=== PATIENT | male | born 1995 | race Caucasian/White ===

== ENCOUNTER 2020-06-28 17:02 | Outpatient (REF) | payer OTHER, SELFPAY | END 2020-06-28 17:03 | disposition home or self-care (01) | LOC: HO.LAB 17:02 | PROVIDERS: Visit Provider Internal Medicine | DX: Z20.828 Contact with and (suspected) exposure to other viral communicable diseases (principal) | CPT/HCPCS: C9803; U0003 ==

== ENCOUNTER 2021-08-13 13:20 | Emergency (ER) | payer OTHER, SELFPAY ==
[2021-08-13 14:22] VITALS: BP 133/85; PULSE 60; RESP 18; TEMP 36.9; O2SAT 100; BMI 23.8
[2021-08-13 14:47] LABS: Basophils Absolute Auto 0.1 X10*3/uL (0.0-0.2); Basophils Percent Auto 0.9 % (0-2); Eosinophils Absolute Auto 2.1 X10*3/uL (0.0-0.4); Eosinophils Percent Auto 18.8 % (0-4); Hematocrit 50.9 % (42.0-52.0); Imm Gran Abs Auto 0.03 X10*3/uL (0.00-0.03); Imm Gran Pct Auto 0.3 % (0.0-0.4); Lymphocytes Absolute Auto 2.2 X10*3/uL (1.2-4.9); Lymphocytes Percent Auto 19.6 % (20-40); MANUAL DIFF FLAG SCAN; Mean Corpuscular HGB Conc 33.4 g/dl (31.0-36.0); Mean Corpuscular Volume 89.8 fL (80.0-98.0); Mean Platelet Volume 12.1 fL (9.4-12.4); Monocytes Absolute Auto 0.9 X10*3/uL (0.1-1.2); Monocytes Percent Auto 7.9 % (2-11); Neutrophils Absolute Auto 5.9 x10*3/uL (2.0-8.3); Neutrophils Percent Auto 52.5 % (45-73); Platelet Count 205 X10*3/uL (160-400); Red Blood Count 5.67 X10*6/uL (4.60-5.80); Red Cell Distribution Width 12.1 % (11.0-16.0); SCAN SMEAR FLAG 1; White Blood Count 11.3 X10*3/uL (4.8-10.8)
[2021-08-13 14:58] LABS: Anion Gap 12 (12-20); Blood Urea Nitrogen 12 mg/dL (9-16); Calcium 10.2 mg/dL (8.4-10.2); Carbon Dioxide 30 mmol/L (22-29); Chloride 103 mmol/L (96-108); Creatinine Clr Calc Pharmacy 106.6; Estimated Glomerular Filt Rate > 60; Glucose Random 101 mg/dL (60-115); Potassium 4.6 mmol/L (3.3-5.1); Sodium 140 mmol/L (135-145)
[2021-08-13 15:21] LABS: SLIDE REVIEW VERIFIED
== END 2021-08-13 20:30 | disposition left against medical advice (07) ==
LOC: HO.ED 20:16
PROVIDERS: Emergency Provider Emergency Medicine
DX: R10.9 Unspecified abdominal pain (principal)
CPT/HCPCS: 36415; 80048; 85025; 99282; 99283

== ENCOUNTER 2022-11-25 16:21 | Emergency (ER) | payer OTHER, SELFPAY ==
--- NOTE | ~2022-11-25 | CT_ITS ---
EXAMINATION: CT ABDOMEN AND PELVIS WITHOUT CONTRAST CLINICAL INFORMATION: Flank pain, dysuria. COMPARISON: None available. TECHNIQUE: Multidetector volumetric imaging was performed from the superior aspect of the liver through the pubic symphysis. Sagittal and coronal reformatted images were obtained on the technologist's workstation. This CT examination was performed using dose optimization techniques as appropriate, variously including the following: *Automated exposure control *Adjustment of mA and/or kV according to patient size (this includes techniques or standardized protocols for targeted exams where dose is matched to indication/reason for exam; i.e. extremities or head) *Use of iterative reconstruction technique DLP: 354 mGy-cm FINDINGS: The lack of intravenous contrast limits evaluation of the solid visceral organs including the liver, spleen, pancreas, and kidneys. LUNG BASES: The visualized lung bases are unremarkable. LIVER, GALLBLADDER, AND BILIARY TREE: The liver is normal in size, shape, and attenuation. No focal hepatic lesion or biliary ductal dilatation is present. The gallbladder is unremarkable with no evidence of radiopaque gallstones, gallbladder wall thickening, or obvious pericholecystic inflammatory changes. PANCREAS: Unremarkable. SPLEEN: Unremarkable. ADRENAL GLANDS: Unremarkable. KIDNEYS AND URETERS: Mild left hydroureteronephrosis with a 0.4 cm calculus in the left ureterovesical junction (4:604). Normal right kidney. No significant perinephric fat stranding. BLADDER: Decompressed limiting its evaluation. GASTROINTESTINAL TRACT: The small and large bowel are unremarkable. The appendix is unremarkable. ABDOMINAL WALL: No significant hernia is appreciated. LYMPH NODES: No lymphadenopathy. VASCULAR: Normal caliber of the abdominal aorta. PELVIC VISCERA: Unremarkable. OSSEOUS STRUCTURES: No acute or aggressive appearing osseous abnormalities. CT/CT abdomen pelvis wo IV con IMPRESSION: Mild left-sided hydroureteronephrosis with a 0.4 cm calculus in the left ureterovesical junction.
[2022-11-25 16:31] VITALS: BP 137/79; PULSE 67; O2SAT 98
--- NOTE | 2022-11-25 16:31 | ED_ITS ---
HPI - Alcohol General Chief Complaint: Urogenital-Male <MASOUD Mccloud - Last Filed: 11/25/22 16:37> Stated Complaint: FLANK PAIN <MASOUD Mccloud - Last Filed: 11/25/22 16:37> Time Seen by Provider: 11/25/22 20:33 <MASOUD Mccloud - Last Filed: 11/25/22 16:37> Source: patient <Vinny Turner MD - Last Filed: 11/25/22 21:00> Mode of arrival: ambulatory <Vinny Turner MD - Last Filed: 11/25/22 21:00> Limitations: no limitations <Vinny Turner MD - Last Filed: 11/25/22 21:00> History of Present Illness HPI narrative: 27-year-old male who presents emergency department for evaluation of left flank pain x1 week which was mild with increased pain yesterday at 17:00 hours. He states the pain is an intermittent, sharp, stabbing pain which is 10/10. The pain was relieved with Percocet. He denied frequency but has some mild dysuria. He states this urine was very dark yesterday be did not notice any blood in his urine. He denied fever, chills, sore throat, cough, chest pain, shortness of breath, dyspnea on exertion <Vinny Turner MD - Last Filed: 11/25/22 21:00> Related Data Home Medications: Previous Rx's Medication Instructions Recorded acetaminophen 500 mg tablet 1,000 mg PO Q6H PRN fever or pain 11/25/22 (Tylenol Extra Strength) #20 tabs ibuprofen 400 mg tablet 400 mg PO TID PRN fever or pain 11/25/22 #30 tabs oxycodone 5 mg tablet 5 mg PO Q4H PRN pain #14 tabs 11/25/22 tamsulosin 0.4 mg capsule (Flomax) 0.4 mg PO DAILY #30 caps 11/25/22 <MASOUD Mccloud - Last Filed: 11/25/22 16:37> Allergies/Adverse Reactions: Allergies Allergy/AdvReac Type Severity Reaction Status Date / Time No Known Allergies Allergy Unverified 04/12/20 19:53 [No Known Allergies*] <MASOUD Mccloud - Last Filed: 11/25/22 16:37> Review of Systems Review of Systems: Yes all other systems are reviewed and are negative <Vinny Turner MD - Last Filed: 11/25/22 21:00> [facility] Past Medical History [facility] Narrative: Past medical history: None. Past surgical history: None. Social history smokes 1/2 pack of cigarettes per day. He occasionally drinks alcohol. He denies drug use. <Vinny Turner MD - Last Filed: 11/25/22 21:00> Social History Social History: Social History Alcohol intake: never Smoked in Last 30 Days: No Use of substances other than those prescribed or required for medical reasons: No Advance Directives: No Advance Directives Information Provided: No <MASOUD Mccloud - Last Filed: 11/25/22 16:37> Physical Exam ED Vital Signs: Vital Signs - 24 hr 11/25/22 16:33 11/25/22 20:21 Temperature 97.7 F Pulse Rate 58 65 Respiratory Rate 18 15 Blood Pressure 134/77 147/86 H Pulse Oximetry 98 99 Oxygen Delivery Method Room Air Room Air BMI result Body Mass Index 23.4 <MASOUD Mccloud - Last Filed: 11/25/22 16:37> Vital Signs - 24 hr 11/25/22 16:33 11/25/22 20:21 Temperature 97.7 F Pulse Rate 58 65 Respiratory Rate 18 15 Blood Pressure 134/77 147/86 H Pulse Oximetry 98 99 Oxygen Delivery Method Room Air Room Air BMI result Body Mass Index 23.4 <Vinny Turner MD - Last Filed: 11/25/22 21:00> Const General: cooperative and no acute distress <Vinny Turner MD - Last Filed: 11/25/22 21:00> Orientation/consciousness: oriented to person and oriented to place <Vinny Turner MD - Last Filed: 11/25/22 21:00> Limitations: no limitations <Vinny Turner MD - Last Filed: 11/25/22 21:00> HENMT Head: Yes normal to inspection, Yes normocephalic and Yes atraumatic <MD To Stevenson Last Filed: 11/25/22 21:00> Ears: external ears normal <MD To Stevenson Last Filed: 11/25/22 21:00> General nose exam: Normal external nose present <MD To Stevenson Last Filed: 11/25/22 21:00> Face and sinus: Yes normal facial exam <MD To Stevenson Last Filed: 11/25/22 21:00> Mouth: Normal oral and palatal mucosa present <MD To Stevenson Last Filed: 11/25/22 21:00> Throat: Yes posterior oropharynx normal <MD To Stevenson Last Filed: 11/25/22 21:00> Eyes General: appearance normal, both eyes and all related structures <MD To Stevenson Last Filed: 11/25/22 21:00> Pupils: Equal, round and reactive pupils present <MD To Stevenson Last F iled: 11/25/22 21:00> Neck Neck: Yes normal visual inspection, Yes no lymphadenopathy, Yes trachea midline and Yes supple <MD To Stevenson Last Filed: 11/25/22 21:00> Chest Chest palpation & inspection: normal inspection of the chest and normal palpation of entire chest wall <MD To Stevenson Last Filed: 11/25/22 21:00> Resp Effort & Inspection: normal respiratory effort and able to speak in complete sentences <MD To Stevenson Last Filed: 11/25/22 21:00> Auscultation: clear to auscultation bilaterally <MD To Stevenson Last Filed: 11/25/22 21:00> Cardio Rate: regular rate <MD To Stevenson Last Filed: 11/25/22 21:00> Rhythm: regular rhythm <MD To Stevenson Last Filed: 11/25/22 21:00> Heart sounds: S1 normal heart sound present, S2 normal heart sound present and no murmurs <Vinny Turner MD - Last Filed: 11/25/22 21:00> GI Inspection: Yes normal to inspection <Vinny Turner MD - Last Filed: 11/25/22 21:00> Palpation (GI): Soft to palpation, nontender and no guarding <Vinny Turner MD - Last Filed: 11/25/22 21:00> Auscultation: normal bowel sounds <Vinny Turner MD - Last Filed: 11/25/22 21:00> General: Yes CVA tenderness on the left (Moderate) <Vinny Turner MD - Last Filed: 11/25/22 21:00> Back/Spine/Pelvis Back: CVA tenderness <Vinny Turner MD - Last Filed: 11/25/22 21:00> Skin General skin exam: no rashes or lesions noted <Vinny Turner MD - Last Filed: 11/25/22 21:00> Neuro General: oriented to person and oriented to place <Vinny Turner MD - Last Filed: 11/25/22 21:00> Cranial nerves: Yes CN's II-XII intact bilaterally and Yes Equal, round and reactive pupils present <Vinny Turner MD - Last Filed: 11/25/22 21:00> Cognition (Neuro): normal cognition <Vinny Turner MD - Last Filed: 11/25/22 21:00> Motor exam (neuro): 5/5 motor strength present throughout <Vinny Turner MD - Last Filed: 11/25/22 21:00> Extrem General: Yes normal to inspection <Vinny Turner MD - Last Filed: 11/25/22 21:00> Psych Appearance: grossly normal <Vinny Turner MD - Last Filed: 11/25/22 21:00> Speech and movement: Normal speech and movement present <Vinny Turner MD - Last Filed: 11/25/22 21:00> Affect: normal affect <Vinny Turner MD - Last Filed: 05/02/23 21:00> Attitude: cooperative <Vinny Turner MD - Last Filed: 11/25/22 21:00> Thought process: Normal thought process present <Vinny Turner MD - Last Filed: 11/25/22 21:00> Thought content: Normal thought content present <Vinny Turner MD - Last Filed: 11/25/22 21:00> Course Course Course Narrative: RME - 27 yo male presents to the ER via EMS from Urgent Care for evaluation of acute onset of left flank pain and dysuria that started at midnight. No history of kidney stones. Plan: labs, UA, CT abd/pelvis <MASOUD Mccloud - Last Filed: 11/25/22 16:37> Medical Decision Making Medical Decision Making MDM Narrative: 27-year-old male with no significant past medical history presents emergency department for evaluation of mild intermittent left flank pain x1 week with increased pain x2 days. The pain is intermittent, sharp and was 10/10 at its worst. Patient did notice dark urine but no hematuria. He also had some dysuria but no frequency. Provider at triage ordered a CBC, BMP, liver panel, urinalysis, CT scan of the pelvis without IV contrast. 1857: My interpretation patient's labs as follows: WBC elevated 19,500 most likely secondary to pain. Bicarb elevated 30. Bilirubin elevated 1.4. Urin alysis revealed 3+ blood, positive protein. Microscopic revealed 20 RBCs, 0-[address] scan of the abdomen pelvis without IV contrast revealed a 4 mm left ureteral stone at the UVJ with mild hydroureteronephrosis. I did discuss these findings with the patient. Patient was given Flomax 0.4 mg orally. He is also given Toradol 15 mg IV and normal saline x1 L. Patient was discharged with prescriptions for Tylenol and ibuprofen and for pain not relieved by these medications he was prescribed oxycodone. Is also started on Flomax 0.4 mg daily. He was advised to follow-up with our on-call urologist for re-evaluation He was given printed and verbal instructions and discharged home. <Vinny Turner MD - Last Filed: 11/25/22 21:00> Differential Diagnosis Differential diagnosis includes was not limited to ureteral stone, urinary tract infection, pyelonephritis, musculoskeletal pain <Vinny Turner MD - Last Filed: 11/25/22 21:00> Admission/Observation Consideration of admission/observation: Escalation of care including admission/observation considered <Vinny Turner MD - Last Filed: 11/25/22 21:00> Lab Data [facility] Lab Attestation statement: I reviewed the patient's lab results. <Vinny Turner MD - Last Filed: 11/25/22 21:00> See MDM <Vinny Turner MD - Last Filed: 11/25/22 21:00> Result Diagrams: 11/25/22 16:39 11/25/22 16:39 <MASOUD Mccloud - Last Filed: 11/25/22 16:37> Labs: Lab Results 11/25/22 11/25/22 11/25/22 Range/Units 16:39 16:39 19:23 WBC 19.5 H (4.8-10.8) X10*3/uL RBC 5.49 (4.60-5.80) X10*6/uL Hgb 16.4 (14.0-18.0) g/dl Hct 50.0 (42.0-52.0) % MCV 91.1 (80.0-98.0) fL MCH 29.9 (27.0-33.0) pg MCHC 32.8 (31.0-36.0) g/dl RDW 12.9 (11.0-16.0) % Plt Count 252 (160-400) X10*3/uL MPV 11.7 (9.4-12.4) fL Immature Gran % (Auto) 0.5 H (0.0-0.4) % Neut % (Auto) 80.2 H (45-73) % Lymph % (Auto) 8.4 L (20-40) % [place] % (Auto) 9.9 (2-11) % Eos % (Auto) 0.6 (0-4) % Baso % (Auto) 0.4 (0-2) % Lymph # (Auto) 1.6 (1.2-4.9) X10*3/uL [place] # (Auto) 1.9 H (0.1-1.2) X10*3/uL Eos # (Auto) 0.1 (0.0-0.4) X10*3/uL Baso # (Auto) 0.1 (0.0-0.2) X10*3/uL Abs Immat Gran (auto) 0.10 H (0.00-0.03) X10*3/uL Absolute Neuts (auto) 15.7 H (2.0-8.3) x10*3/uL Absolute Nucleated RBC 0.000 (0.0-0.012) X10*3/uL Nucleated RBC % (auto) 0.0 (0.0-0.2) /100WBC Smear Tech's Comments VERIFIED Sodium 140 (135-145) mmol/L Potassium 4.4 (3.3-5.1) mmol/L Chloride 103 (96-108) mmol/L Carbon Dioxide 30 H (22-29) mmol/L Anion Gap 11 L (12-20) BUN 13 (9-16) mg/dL Creatinine 1.26 (0.5-1.4) mg/dL Estim Creat Clear Calc 85.9 Estimated GFR > 60 Random Glucose 105 (60-115) mg/dL Calcium 10.3 H (8.4-10.2) mg/dL Magnesium 2.1 (1.6-2.6) mg/dL Total Bilirubin 1.4 H (0.0-1.0) mg/dL Direct Bilirubin 0.4 (0.0-0.5) mg/dL AST 19 (5-37) U/L ALT 19 (0-40) U/L Alkaline Phosphatase 84 (39-117) U/L Total Protein 8.1 H (6.5-8.0) g/dL Albumin 4.6 (3.5-5.0) g/dL Urine Color Dark Yellow Urine Appearance Clear Urine pH 5.5 (5.0-9.0) Ur Specific [place] >= 1.030 H (1.005-1.025) Urine Protein 30 (1+) H (Neg-Trace) mg/dL Urine Glucose (UA) Negative (Negative) mg/dL Urine Ketones Trace (Negative) mg/dL Urine Blood Large (3+) H (Negative) Urine Nitrite Negative (Negative) Ur Leukocyte Esterase Trace H (Negative) Urine RBC >20 H (0-2) /HPF Urine WBC 0-5 (0-5) /HPF Ur Squamous Epith Cells 0-2 (0-2) /HPF Urine Bacteria None Seen (None Seen) Hyaline Casts 3-5 (0-2) /LPF <MASOUD Mccloud - Last Filed: 11/25/22 16:37> Lab Results 11/25/22 11/25/22 11/25/22 Range/Units 16:39 16:39 19:23 WBC 19.5 H (4.8-10.8) X10*3/uL RBC 5.49 (4.60-5.80) X10*6/uL Hgb 16.4 (14.0-18.0) g/dl Hct 50.0 (42.0-52.0) % MCV 91.1 (80.0-98.0) fL MCH 29.9 (27.0-33.0) pg MCHC 32.8 (31.0-36.0) g/dl RDW 12.9 (11.0-16.0) % Plt Count 252 (160-400) X10*3/uL MPV 11.7 (9.4-12.4) fL Immature Gran % (Auto) 0.5 H (0.0-0.4) % Neut % (Auto) 80.2 H (45-73) % Lymph % (Auto) 8.4 L (20-40) % [place] % (Auto) 9.9 (2-11) % Eos % (Auto) 0.6 (0-4) % Baso % (Auto) 0.4 (0-2) % Lymph # (Auto) 1.6 (1.2-4.9) X10*3/uL [place] # (Auto) 1.9 H (0.1-1.2) X10*3/uL Eos # (Auto) 0.1 (0.0-0.4) X10*3/uL Baso # (Auto) 0.1 (0.0-0.2) X10*3/uL Abs Immat Gran (auto) 0.10 H (0.00-0.03) X10*3/uL Absolute Neuts (auto) 15.7 H (2.0-8.3) x10*3/uL Absolute Nucleated RBC 0.000 (0.0-0.012) X10*3/uL Nucleated RBC % (auto) 0.0 (0.0-0.2) /100WBC Smear Tech's Comments VERIFIED Sodium 140 (135-145) mmol/L Potassium 4.4 (3.3-5.1) mmol/L Chloride 103 (96-108) mmol/L Carbon Dioxide 30 H (22-29) mmol/L Anion Gap 11 L (12-20) BUN 13 (9-16) mg/dL Creatinine 1.26 (0.5-1.4) mg/dL Estim Creat Clear Calc 85.9 Estimated GFR > 60 Random Glucose 105 (60-115) mg/dL Calcium 10.3 H (8.4-10.2) mg/dL Magnesium 2.1 (1.6-2.6) mg/dL Total Bilirubin 1.4 H (0.0-1.0) mg/dL Direct Bilirubin 0.4 (0.0-0.5) mg/dL AST 19 (5-37) U/L ALT 19 (0-40) U/L Alkaline Phosphatase 84 (39-117) U/L Total Protein 8.1 H (6.5-8.0) g/dL Albumin 4.6 (3.5-5.0) g/dL Urine Color Dark Yellow Urine Appearance Clear Urine pH 5.5 (5.0-9.0) Ur Specific [place] >= 1.030 H (1.005-1.025) Urine Protein 30 (1+) H (Neg-Trace) mg/dL Urine Glucose (UA) Negative (Negative) mg/dL Urine Ketones Trace (Negative) mg/dL Urine Blood Large (3+) H (Negative) Urine Nitrite Negative (Negative) Ur Leukocyte Esterase Trace H (Negative) Urine RBC >20 H (0-2) /HPF Urine WBC 0-5 (0-5) /HPF Ur Squamous Epith Cells 0-2 (0-2) /HPF Urine Bacteria None Seen (None Seen) Hyaline Casts 3-5 (0-2) /LPF <Vinny Turner MD - Last Filed: 11/25/22 21:00> Radiology Impression Discussion of test interpretation with radiology: I have reviewed the radiologist's reading. <Vinny Turner MD - Last Filed: 11/25/22 21:00> Radiologist Impression: CT abdomen pelvis wo IV con IMPRESSION: Mild left-sided hydroureteronephrosis with a 0.4 cm calculus in the left ureterovesical junction. Dictated By:Viola Medrano <Vinny Turner MD - Last Filed: 11/25/22 21:00> External Record Review External record reviewed: Other ([facility] prescription monitoring program-no recent prescriptions for opiates) <Vinny Turner MD - Last Filed: 11/25/22 21:00> Discharge Plan Discharge Clinical Impression: Calculus of left ureter, Renal colic on left side <MASOUD Mccloud - Last Filed: 11/25/22 16:37> Patient Disposition: Home, Self-Care <MASOUD Mccloud - Last Filed: 11/25/22 16:37> Instructions: How to Strain Your Urine (ED), Ureteral Stones (ED) <MASOUD Mccloud - Last Filed: 11/25/22 16:37> Additional Instructions: Your blood work was normal except for an elevated white blood cell count which is most likely caused by your pain. Your urine revealed blood which is caused by the stone in your ureter, there was no evidence for an infection. The CT scan of your abdomen pelvis without IV contrast revealed a 4 mm stone in the ureter (the tube that connects the kidney to the bladder). This stone is right at the junction of where the ureter connects to the bladder. Take Flomax (tamsulosin) 0.4 mg once a day for the next 2 weeks or until you pass the stone. This medication helps relax the ureter and may help you pass the stone sooner. Take ibuprofen 400 mg pills, 1pills every 6 hours as needed for pain or fever. Take Tylenol (acetaminophen) 500 mg pills, 2 pills every 6 hours as needed for pain or fever. For pain not relieved by ibuprofen or Tylenol take oxycodone 5 mg pills, 1 pill every 4 hours as needed for pain. Do not drive or work while taking this medication since they can cause sleepiness. Oxycodone is a narcotic medication that can be addicting. If you are concerned about addiction you can ask the pharmacist for less pills or do not get this prescription filled. Follow-up with our on-call urologist, Dr. Ko in 1 week Please return to the emergency department if your symptoms get worse or if you develop any symptoms that are concerning to you. <MASOUD Mccloud - Last Filed: 11/25/22 16:37> Prescriptions: New acetaminophen [Tylenol Extra Strength] 500 mg tablet 1,000 mg PO Q6H PRN (Reason: fever or pain) Qty: 20 0RF tamsulosin [Flomax] 0.4 mg capsule 0.4 mg PO DAILY Qty: 30 0RF ibuprofen 400 mg tablet 400 mg PO TID PRN (Reason: fever or pain) Qty: 30 0RF oxycodone 5 mg tablet 5 mg PO Q4H PRN (Reason: pain) Qty: 14 0RF Rx Instructions: Patient may request partial fill; Partial Fill upon patient request. <MASOUD Mccloud - Last Filed: 11/25/22 16:37> Referrals: Terry Gambino MD [Physician] - 1 week (Left 4 mm ureteral stone at the UVJ, pain x1 week, worse x2 days, mild hydroureteronephrosis) <MASOUD Mccloud - Last Filed: 11/25/22 16:37>
[2022-11-25 16:33] VITALS: BP 134/77; PULSE 58; RESP 18; TEMP 36.5; O2SAT 98; BMI 23.4
[2022-11-25 16:47] LABS: Basophils Absolute Auto 0.1 X10*3/uL (0.0-0.2); Basophils Percent Auto 0.4 % (0-2); Eosinophils Absolute Auto 0.1 X10*3/uL (0.0-0.4); Eosinophils Percent Auto 0.6 % (0-4); Hemoglobin 16.4 g/dl (14.0-18.0); Imm Gran Pct Auto 0.5 % (0.0-0.4); Lymphocytes Absolute Auto 1.6 X10*3/uL (1.2-4.9); Lymphocytes Percent Auto 8.4 % (20-40); MANUAL DIFF FLAG SCAN; Mean Corpuscular HGB Conc 32.8 g/dl (31.0-36.0); Mean Corpuscular Hemoglobin 29.9 pg (27.0-33.0); Mean Corpuscular Volume 91.1 fL (80.0-98.0); Mean Platelet Volume 11.7 fL (9.4-12.4); Monocytes Absolute Auto 1.9 X10*3/uL (0.1-1.2); Monocytes Percent Auto 9.9 % (2-11); Neutrophils Absolute Auto 15.7 x10*3/uL (2.0-8.3); Neutrophils Percent Auto 80.2 % (45-73); Platelet Count 252 X10*3/uL (160-400); Red Blood Count 5.49 X10*6/uL (4.60-5.80); Red Cell Distribution Width 12.9 % (11.0-16.0); SCAN SMEAR FLAG 1; White Blood Count 19.5 X10*3/uL (4.8-10.8)
[2022-11-25 17:03] LABS: Alanine Aminotransferase 19 U/L (0-40); Albumin Level 4.6 g/dL (3.5-5.0); Alkaline Phosphatase 84 U/L (39-117); Anion Gap 11 (12-20); Aspartate Amino Transferase 19 U/L (5-37); Bilirubin Direct 0.4 mg/dL (0.0-0.5); Bilirubin Total 1.4 mg/dL (0.0-1.0); Blood Urea Nitrogen 13 mg/dL (9-16); Calcium 10.3 mg/dL (8.4-10.2); Carbon Dioxide 30 mmol/L (22-29); Chloride 103 mmol/L (96-108); Creatinine Clr Calc Pharmacy 85.9; Estimated Glomerular Filt Rate > 60; Glucose Random 105 mg/dL (60-115); Magnesium 2.1 mg/dL (1.6-2.6); Potassium 4.4 mmol/L (3.3-5.1); Sodium 140 mmol/L (135-145); Total Protein 8.1 g/dL (6.5-8.0)
[2022-11-25 17:06] LABS: SLIDE REVIEW VERIFIED
[2022-11-25 19:32] LABS: Appearance Urine Clear; Color Urine Dark Yellow; Glucose Urine UA Negative (Negative); Leukocyte Esterase Urine Trace (Negative); Nitrite Urine Negative (Negative); PH 5.5 (5.0-9.0); Specific Gravity - Urine >= 1.030 (1.005-1.025); UMIC TRIGGER UACC YES; Urine Blood Large (3+) (Negative); Urine Ketones Trace mg/dL (Negative); Urine Protein 30 (1+) mg/dL (Neg-Trace)
[2022-11-25 20:21] VITALS: BP 147/86; PULSE 65; RESP 15; O2SAT 99
[2022-11-25 20:26] LABS: Bacteria Urine None Seen (None Seen); RBC Urine >20 /HPF (0-2); Squamous Epithelial Cell Urine 0-2 /HPF (0-2); WBC Urine 0-5 /HPF (0-5)
[2022-11-25] MEDS: 0.9 % Sodium Chloride 1,000 ML 999 ML IV (20:36)
[2022-11-25 20:50] LABS: Lactic Acid 0.7 mmol/L (0.5-2.0)
[2022-11-25] MEDS: Ketorolac Tromethamine 15 MG/ML VIAL IVPUSH (20:57)
[2022-11-25] MEDS: Tamsulosin HCL 0.4 MG CAPSULE PO (20:57)
== END 2022-11-25 21:21 | disposition home or self-care (01) ==
PROVIDERS: Physician Assistant; Emergency Provider Emergency Medicine Emergency Medical Services
DX: N20.1 Calculus of ureter (principal); N23 Unspecified renal colic; Z79.899 Other long term (current) drug therapy
CPT/HCPCS: 36415; 74176; 80048; 80076; 81001; 81003; 83605; 83735; 85025; 87040; 96374; 99284; 99285; J1885